=== PATIENT | female | born 1975 | race Caucasian/White ===

== ENCOUNTER 2022-10-16 09:38 | Outpatient (OUT) | payer BC, SELFPAY ==
--- NOTE | 2022-10-16 09:54 | XR_ITS ---
The [address] [address] Patient Name: YURI DIAZ MRN: [id number] date: 1975 Sex: F Assigned Patient Location: [facility] Current Patient Location: [facility] Accession/Order Number: [id number] Exam Date: 10/16/2022 10:00 Report Date: 10/16/2022 11:11 At the request of: JOANN GILLILAND Procedure: XR hip LT 2V w/ pelvis PROCEDURE: XR hip LT 2V w/ pelvis COMPARISON: 10/11/2021 lumbar spine X-ray HISTORY: Bilateral hip pain M25.561, M25.562 FINDINGS: BONES:1.7 cm bone fragment identified along the superior lateral left acetabulum, this appears corticated. No dislocation. Posterior decompression and lumbosacral transpedicular fusion with bone graft placement SOFT TISSUES:Negative. No visible soft tissue swelling. EFFUSION:None visible. OTHER: Negative. XR/XR hip LT 2V w/ pelvis IMPRESSION: 1.7 cm likely chronic avulsion fracture superior left acetabulum Electronically authenticated by: KIM LINARES Date: 10/16/2022 11:11
--- NOTE | 2022-10-16 09:54 | XR_ITS ---
[address] [address] Patient Name: YURI DIAZ MRN: [id number] date: 1975 Sex: F Assigned Patient Location: [facility] Current Patient Location: [facility] Accession/Order Number: [id number] Exam Date: 10/16/2022 10:00 Report Date: 10/16/2022 10:44 At the request of: JOANN GILLILAND Procedure: XR knee RICARDO 4V EXAM: XR knee RICARDO 4V HISTORY: Pain in bilateral knees, M25.561, M25.562 COMPARISON: None. TECHNIQUE: 4 views FINDINGS: No acute fracture or dislocation. Mild degenerative changes medial compartment of the knees, bilaterally. Mild soft tissue swelling. XR/XR knee RICARDO 4V IMPRESSION: Degenerative changes as above. Electronically authenticated by: RAFA LOCKETT Date: 10/16/2022 10:44
== END 2022-10-16 09:39 | disposition home or self-care (01) ==
LOC: RAD 09:42
PROVIDERS: Family Provider Family Medicine; PCP Family Medicine; Visit Provider Orthopaedic Surgery
DX: M25.561 Pain in right knee (principal); M25.562 Pain in left knee; M25.552 Pain in left hip
CPT/HCPCS: 73502; 73564

== ENCOUNTER 2022-12-04 08:33 | Outpatient (OUT) | payer BC, SELFPAY ==
--- NOTE | 2022-12-04 08:44 | MR_ITS ---
The [address] [address] Patient Name: YURI DIAZ MRN: [id number] date: 1975 Sex: F Assigned Patient Location: MRI Current Patient Location: Accession/Order Number: [id number] Exam Date: 12/04/2022 09:07 Report Date: 12/05/2022 00:18 At the request of: JOANN GILLILAND Procedure: MR pelvis wo con EXAMINATION: MR pelvis wo con HISTORY: Pelvic Pain R10.2 , left hip pain COMPARISON: No relevant comparison available. TECHNIQUE: A comprehensive examination was performed utilizing a variety of imaging planes and imaging parameters to optimize visualization of suspected pathology. Images were obtained with and/or without contrast as indicated by exam type. FINDINGS: AORTA/VASCULAR: No aneurysm or dissection. RETROPERITONEUM: No mass or adenopathy. BOWEL/MESENTERY: No visible mass, obstruction, or bowel wall thickening. ABDOMINAL WALL: No mass or hernia. URINARY BLADDER: Normal. No visible focal wall thickening, lesion, or calculus. PELVIC NODES: Normal. No adenopathy. PELVIC ORGANS: Both ovaries contain several cysts/follicles; the largest is on left, 2.5 cm. Normal appearance of uterus. BONES: No bony lesion or fracture. OTHER: Negative. MR/MR pelvis wo con IMPRESSION: 1. Bilateral ovarian cysts favoring benign etiology. No acute findings. 2. No suspicious findings to account for patient's symptoms. Electronically authenticated by: JOANN KEYS Date: 12/05/2022 00:18
== END 2022-12-04 08:34 | disposition home or self-care (01) ==
LOC: MRI 08:33
PROVIDERS: Family Provider Family Medicine; PCP Family Medicine; Visit Provider Orthopaedic Surgery
DX: R10.2 Pelvic and perineal pain (principal); M25.552 Pain in left hip; N83.202 Unspecified ovarian cyst, left side; N83.201 Unspecified ovarian cyst, right side
CPT/HCPCS: 72195

== ENCOUNTER 2022-12-05 14:54 | Outpatient (OUT) | payer BC, SELFPAY ==
--- NOTE | 2022-12-05 15:28 | MM_ITS ---
Patient: YURI DIAZ Exam Date: 12/05/2022 : 1975 Gender:F Ordering : DR JB LARSON Admission #: [id number] Family : Order #: [id number] CLICK HERE TO VIEW EXAM RADIOLOGY REPORT PROCEDURE: MM TOMOSYNTHESIS SCREENING BI COMPARISON: MG MAMM SCREEN 3D RICARDO CAD, 10/21/2015. MG MAMM SCREEN 3D RICARDO CAD, 10/31/2016. INDICATIONS: Screening Calculator Name NCI Breast Cancer Risk Assessment Tool 5 Year Breast Cancer Risk 1.30% Lifetime Breast Cancer Risk 12.30% Personal Breast Cancer No Personal Ovarian Cancer No Treatments None Family Cancers None LOCATION: [facility] BREAST COMPOSITION: Scattered areas fibroglandular density. FINDINGS: DIAGNOSTIC CATEGORY 1--NEGATIVE. NO CHANGE FROM COMPARISON ASSESSMENT. Scattered benign-appearing calcifications are present. RIGHT BREAST: No significant suspicious finding. LEFT BREAST: No significant suspicious finding. RECOMMENDATIONS: ROUTINE MAMMOGRAM AND CLINICAL EVALUATION IN 12 MONTHS. PLEASE NOTE: A NORMAL MAMMOGRAM DOES NOT EXCLUDE THE POSSIBILITY OF BREAST CANCER. A CLINICALLY SUSPICIOUS PALPABLE LUMP SHOULD BE BIOPSIED. Dictated by: Clarence Omer MD on 12/06/2022 at 06:47 Approved by: Clarence Omer MD on 12/06/2022 at 06:48
== END 2022-12-05 14:55 | disposition home or self-care (01) ==
LOC: MAMMO 14:54
PROVIDERS: Family Provider Family Medicine; PCP Family Medicine; Visit Provider Family Medicine
DX: Z12.31 Encounter for screening mammogram for malignant neoplasm of breast (principal)
CPT/HCPCS: 77063; 77067